=== PATIENT | female | born 1965 | race Caucasian/White ===

== ENCOUNTER 2018-02-16 11:50 | Day surgery (SDC) | END 2018-02-16 16:23 | disposition home or self-care (01) ==

== ENCOUNTER 2018-05-11 12:44 | Day surgery (SDC) | END 2018-05-11 17:06 | disposition home or self-care (01) ==

== ENCOUNTER 2019-01-06 05:43 | Day surgery (SDC) | payer OTHER ==
[~2019-01-06] VITALS: Ht 152.4 cm; Wt 67.8 kg
[~2019-01-06 05:43] MED LIST: NO MEDS
[2019-01-06] MEDS ORDERED: IRON (06:44)
[2019-01-06] MEDS ORDERED: MELOXICAM (06:44)
[2019-01-06 06:50] VITALS: BP 139/71; PULSE 41; RESP 15
[2019-01-06] MEDS ORDERED: FENTAnyl 50 MCG/ML VIAL ONE (07:54)
[2019-01-06] MEDS ORDERED: MIDAZOLAM 1 MG/ML 2 ML INJ ONE (07:55)
[2019-01-06 08:09] VITALS: BP 111/64; PULSE 42; RESP 18
== END 2019-01-06 11:20 | disposition home or self-care (01) ==
LOC: GIL 05:43
PROVIDERS: ATTEND Internal Medicine Gastroenterology
DX: K29.60 Other gastritis without bleeding (principal); K44.9 Diaphragmatic hernia without obstruction or gangrene; K21.9 Gastro-esophageal reflux disease without esophagitis
CPT/HCPCS: 43239; 84703; 88305; 88312; J2250; J3010; Z7610